=== PATIENT | male | born 2000 | race Caucasian/White ===

== ENCOUNTER 2023-09-11 22:37 | Emergency (ER) | payer SELFPAY ==
[~2023-09-11] VITALS: Ht 162.6 cm; Wt 54.0 kg
[2023-09-11 22:39] VITALS: O2SAT 99
[2023-09-11] MEDS: SODIUM CHLORIDE 0.9% 1,000 ML IV ONE (23:52)
[2023-09-11] MEDS: LEVETIRACETAM 1000MG PREMIX 100 ML IV ONE (23:54)
[2023-09-12] VITALS: BP 121/71; PULSE 56; RESP 12; TEMP 97.7
[2023-09-12] MEDS ORDERED: KEPP500 MT (01:21)
== END 2023-09-12 01:55 | disposition home or self-care (01) ==
LOC: EDBD 22:37 → ER 22:59
DX: R56.9 Unspecified convulsions (principal)
CPT/HCPCS: 99284; 96365; J1953; J7030

== ENCOUNTER 2024-11-02 01:21 | Emergency (ER) | payer MEDICAID ==
[~2024-11-02] VITALS: Ht 167.6 cm; Wt 73.0 kg
[~2024-11-02 01:21] MED LIST: KEPP500 MT
[2024-11-02 01:24] VITALS: O2SAT 98
[2024-11-02] MEDS: LEVETIRACETAM 1000MG PREMIX 100 ML IV ONE (01:52)
[2024-11-02] MEDS ORDERED: LEVE1000 MT (03:22)
[2024-11-02 03:44] VITALS: BP 102/61; PULSE 70; RESP 20; TEMP 36.8; O2SAT 97
== END 2024-11-02 03:54 | disposition home or self-care (01) ==
LOC: ER 01:21
DX: G40.909 Epilepsy, unspecified, not intractable, without status epilepticus (principal); Z79.899 Other long term (current) drug therapy
CPT/HCPCS: 99284; 96365; 93005; J1953

== ENCOUNTER 2024-12-02 22:04 | Emergency (ER) | payer MEDICAID ==
[~2024-12-02] VITALS: Ht 167.6 cm; Wt 68.0 kg
[~2024-12-02 22:04] MED LIST changes: +LEVE1000 MT
[2024-12-02 23:04] VITALS: BP 118/91; TEMP 36.5; O2SAT 99
[2024-12-02 23:07] VITALS: PULSE 79; RESP 16; O2SAT 99
[2024-12-02] MEDS ORDERED: IBUPROFEN 400MG TABLET PO ONE (23:45)
[2024-12-03 00:18] LABS: BASOPHILS % 0.4 % (0.0-2.0); EOSINOPHILS % 1.6 % (0.0-5.0); HEMATOCRIT. 44.7 % (42.0-52.0); HEMOGLOBIN. 15.3 g/dL (14.0-18.0); MEAN CORPUSCULAR HEMOGLOBIN 30.2 pg (28.0-32.0); MEAN CORPUSCULAR HGB CONC 34.2 g/dL (31.0-37.0); MEAN CORPUSCULAR VOLUME 88.4 fL (80.0-94.0); MONOCYTES % 5.5 % (2.0-8.0); NEUTROPHILS % 49.5 % (40.0-76.0); PLATELET 279 x1000/uL (130-400); RED BLOOD CELL COUNT 5.06 mill/uL (4.7-6.1); WHITE BLOOD COUNT 6.8 x1000/uL (4.5-11.0)
[2024-12-03 00:27] LABS: CHLORIDE 109 mEq/L (98-107); POTASSIUM 3.7 mEq/L (3.5-5.1); SODIUM 141 mEq/L (136-145)
[2024-12-03 00:28] LABS: CALCIUM 9.2 mg/dL (8.7-10.4); CARBON DIOXIDE 24 mEq/L (21-32)
[2024-12-03 00:33] LABS: CREATININE 0.8 mg/dL (0.6-1.3); GLUCOSE 107 mg/dL (70-105); UREA NITROGEN BLOOD 16 mg/dL (9-23)
== END 2024-12-03 01:06 | disposition home or self-care (01) ==
LOC: ER 22:04
DX: G40.909 Epilepsy, unspecified, not intractable, without status epilepticus (principal); F19.90 Other psychoactive substance use, unspecified, uncomplicated
CPT/HCPCS: 36415; 80048; 85025; 99283

== ENCOUNTER 2025-04-20 08:02 | Emergency (ER) | payer MEDICAID ==
[~2025-04-20] VITALS: Ht 165.1 cm; Wt 78.0 kg
[2025-04-20 08:09] VITALS: PULSE 101; RESP 18; O2SAT 99
[2025-04-20 08:12] VITALS: BP 122/80; TEMP 36.7; O2SAT 98
[2025-04-20] MEDS: LIDOCAINE HCL 1% 20ML VIAL INFIL ONE (08:53)
[2025-04-20] MEDS: TETANUS, DIPHTHERIA, PERTUSSIS VAC/PF 0.5ML (>10YR OLD) IM ONE (08:54)
== END 2025-04-20 10:43 | disposition home or self-care (01) ==
LOC: ER 08:16
DX: S01.511A Laceration without foreign body of lip, initial encounter (principal); Y09 Assault by unspecified means; Y93.89 Activity, other specified; Y92.89 Other specified places as the place of occurrence of the external cause; Y99.8 Other external cause status
CPT/HCPCS: 99284; 70450; 12011; J2003; 90715